=== PATIENT | male | born 1965 | race Caucasian/White ===

== ENCOUNTER 2021-03-08 14:22 | Emergency (ER) | payer OTHER, SELFPAY ==
--- NOTE | 2021-03-08 14:27 | ED.WOUNDLAC ---
HPI - Wound/Laceration General Chief Complaint: Wound/Laceration Stated Complaint: 3 Fingers Cut on right Hand Time Seen by Provider: 03/08/21 15:15 Source: patient and RN notes reviewed Mode of arrival: ambulatory Limitations: no limitations History of Present Illness HPI narrative: 55-year-old male presents concern for lacerations to the third fourth and fifth digits of his right hand that he sustained just prior to arrival when he was putting up drywall, he lacerated the digits on a piece of metal. He denies any decreased strength. Reports slight numbness at the distal point of the third digit. Reports he is not up-to-date on his vaccinations. Extremity Location: Right: hand Related Data Home Medications Medication Instructions Recorded Confirmed cyclobenzaprine [Flexeril] 10 mg PO TID PRN 03/08/21 03/08/21 ibuprofen 03/08/21 omeprazole 40 mg PO DAILY 03/08/21 03/08/21 Allergies Allergy/AdvReac Type Severity Reaction Status Date / Time No Known Allergies Allergy Verified 03/08/21 14:46 Review of Systems Review of Systems: CONSTITUTIONAL: Denies malaise, chills, sweats, or fever. SKIN: Reports dorsal laceration to the third fourth and fifth digit of the right hand MUSCULOSKELETAL: Denies muscle skeletal pain NEUROLOGIC: Denies weakness, reports mild numbness to the tip of the third digit All systems reviewed & are unremarkable except as noted in HPI and below PMFSH Comments At time of signature, agree with nursing past medical, surgical, social and family history. There is no relevant family history pertinent to the presenting complaint Exam Narrative: GENERAL: Well-appearing, well-nourished, and in no acute distress. HEAD: Normocephalic EYES: PERRLA, conjunctivae clear NECK: Supple. CHEST: Speaks in full sentences. No respiratory distress. HEART: Regular rate and rhythm. Normal and equal peripheral pulses. EXTREMITIES: Right hand and digits of hand have normal strength and sensation. 5/5 strength with digit flexion, extension. Range of motion normal. No clubbing, cyanosis, or edema noted. No tenderness. Normal digital cascade with flexion of fingers, median, ulnar and radial nerve intact. Normal sensation of each side of finger. Can perform 'okay' sign, 'cross over finger test of index and middle fingers' and 'thumbs up' sign. No scissoring. Normal thumb opposition. Good capillary refill and radial pulse. Distal capillary refill less than 3 seconds. SKIN: Warn, dry, intact, pink. Very superficial less than 1 cm laceration noted to the dorsal aspect of the fifth digit of the right hand with no bleeding. 1.5 cm laceration into the subcutaneous tissue noted near the DIP joint of the fourth digit of the right hand, 1.5 cm laceration to the DIP joint noted to the third digit of the right hand NEURO: Alert and oriented x3. PSYCH: Normal mood and affect Course Course Emergency Course: Patient is aware of diagnosis, understands and agrees to treatment plan. Anticipatory guidance given. Patient agrees to follow-up as directed and is aware of reasons to seek care at the emergency department. Portions of this record may have been created with voice recognition software Vital Signs Vital signs: Reviewed. Procedures Laceration Laceration 1: Date: 03/08/21 Time: 15:42 Site: hand Side (If applicable): right Size (cm): 1.5 Description: linear Depth: simple, single layer Local Anesthetic: lidocaine 1% Amount of anesthesia used (mL): 1 Pre-repair: wound explored and irrigated ====== Skin Level ====== Skin layer closed with: nylon Size (cm): 4-0 Number of sutures: 3 ====== Subcutaneous Layer ====== ====== Muscle Layer ====== ====== Tendon Layer ====== Laceration 2: Date: 03/08/21 Time: 15:42 Site: hand Side (If applicable): right Size (cm): 0.75 Description: linear
[2021-03-08 14:32] VITALS: BP 130/85; PULSE 84; RESP 16; TEMP 36.6; O2SAT 96
[2021-03-08] MEDS: TETANUS,DIPHTHERIA,AC PERTUSSIS ADULT (0.5 ML) BOOSTRIX IM (15:04)
[2021-03-08] MEDS: LIDOCAINE, EPINEPHRINE, TETRACAINE VISCOUS SOLN 3 ML TOPICAL (15:22)
== END 2021-03-08 16:16 | disposition home or self-care (01) ==
PROVIDERS: Emergency Provider Nurse Practitioner; PCP Family Medicine
DX: S61.212A Laceration without foreign body of right middle finger without damage to nail, initial encounter (principal); S61.214A Laceration without foreign body of right ring finger without damage to nail, initial encounter; S61.216A Laceration without foreign body of right little finger without damage to nail, initial encounter; W45.8XXA Other foreign body or object entering through skin, initial encounter; Z23 Encounter for immunization
CPT/HCPCS: 12001; 90471; 90715; 99202; G0463

== ENCOUNTER 2021-09-12 18:05 | Emergency (ER) | payer OTHER, SELFPAY ==
--- NOTE | ~2021-09-12 | XR_ITS ---
EXAMINATION: XR finger 3rd LT min 2V EXAM DATE: 09/12/2021 18:26 INDICATION: pain bledding distal lt 3rd finger, hit on blade . TECHNIQUE: Left 3rd finger frontal, lateral and oblique projections obtained and reviewed. There i s no prior study for comparison. FINDINGS: There is acute posttraumatic left 3rd tuft fracture, mild comminution. Possible overlying laceration, uncertain whether or not this is open or closed. Clinical correlation. Overlying edema. IMPRESSION: 1. Comminuted left 3rd tuft fracture. Reviewed, dictated and finalized at location [facility]
[2021-09-12 18:11] VITALS: BP 151/99; PULSE 92; RESP 16; TEMP 36.7; O2SAT 100
--- NOTE | 2021-09-12 18:41 | ED.GENADULT ---
HPI - General Adult General Chief complaint: Extremity Injury, Upper Stated complaint: Finger Injury Source: patient Mode of arrival: ambulatory Limitations: no limitations History of Present Illness HPI narrative: Patient presents for evaluation of injury to the third digit of the left hand that occurred at approximately 1530 today. He states he was snowblowing in the third digit of his left hand hit the blade. He indicates that the nail plate is slightly avulsed from the nail bed. Reports some minimal amount of bleeding from the affected area. He rates his pain 10 out of 10 in severity, worse with palpation. Pain is throbbing and without paresthesias. He is not diabetic. He smokes 2 to 3 packs of cigarettes per week. He is ambidextrous. He has not taken anything to assist with his symptoms. Last tetanus within the last 5 years. Related Data Home Medications Medication Instructions Recorded Confirmed cyclobenzaprine [Flexeril] 10 mg PO TID PRN 03/08/21 03/08/21 ibuprofen 03/08/21 omeprazole 40 mg PO DAILY 03/08/21 03/08/21 Allergies Allergy/AdvReac Type Severity Reaction Status Date / Time No Known Allergies Allergy Verified 03/08/21 14:46 Review of Systems Review of Systems: CONSTITUTIONAL: Denies fever, chills, or sweats. EYES: Denies visual changes, redness, or discharge. ENT: Denies rhinorrhea, congestion, sore throat, or otalgia. CARDIOVASCULAR: Denies chest pain, palpitations, or edema. RESPIRATORY: Denies cough or dyspnea. GASTROINTESTINAL: Denies abdominal pain, nausea, vomiting, or diarrhea. GENITOURINARY: Denies dysuria or hematuria. SKIN: Reports injury to nail plate of third digit of left hand. MUSCULOSKELETAL: Reports pain in distal phalanx of third digit of left hand NEUROLOGIC: Denies headache, numbness, dizziness, or weakness. PSYCHIATRIC: Denies anxiety or depression. [facility] Past Medical History Medical History (Updated 09/12/21 @ 19:42 by Ga Broussard, BARTOLOME, OSMEL) No pertinent past medical history Surgical History Surgical History History of tonsillectomy Family History Family History Father Hypertension Social History Social History Smoking packs per day: 0.25 Smoking cigarettes per day: 5.0 Smoking status: Current every day smoker Alcohol intake: never Substance use: never Substance use type: does not use Living arrangements: with family Gender identity (if verbalized by the patient): Male Sexual Orientation (if Verbalized by the Patient): Straight or Heterosexual Spiritual care concerns: No Exam Narrative: GENERAL: Well-appearing, well-nourished, and in no acute distress. HEAD: Normocephalic, atraumatic. EYES: PERRLA and EOMI. ENT: Nares clear, no rhinorrhea or epistaxis. Mucous membranes moist. Oropharynx without tonsillar hypertrophy exudate or other lesions. Bilateral TMs pearly ramos nonbulging NECK: Supple. No adenopathy or masses. No carotid bruits or JVD CHEST: Clear to auscultation. No respiratory distress. No wheezes rales or rhonchi HEART: Regular rate and rhythm. No murmur heard. Normal peripheral pulses. ABDOMEN: Soft, nontender, nondistended, normal active bowel sounds. EXTREMITIES: Normal range of motion. Tenderness over distal phalanx of third digit of left hand SKIN: There is a scant amount of dried sanguinous drainage around border of nail plate of third digit of left hand. The proximal aspect of the nail plate of the third digit of the left hand appears partially avulsed from the nail bed NEURO: No focal deficits. Alert and oriented x3. PSYCH: Normal mood and affect. Course Course Emergency Course: This is a 56-year-old male who presented with an injury to the nail plate of the third digit of the left hand. Nail plate was tacked to the nailbed with 3
[2021-09-12] MEDS: LIDOCAINE HCL 1% LOCAL INJ 20 ML VIAL 10 ML INFILTRATE (18:50)
== END 2021-09-12 19:55 | disposition home or self-care (01) ==
PROVIDERS: Emergency Provider Nurse Practitioner; PCP Family Medicine
DX: S62.663B Nondisplaced fracture of distal phalanx of left middle finger, initial encounter for open fracture (principal); W22.8XXA Striking against or struck by other objects, initial encounter; Y93.29 Activity, other involving ice and snow; F17.210 Nicotine dependence, cigarettes, uncomplicated
CPT/HCPCS: 12001; 29130; 73140; 99213; G0463